=== PATIENT | male | born 1945 | race Caucasian/White ===

== ENCOUNTER → 2023-09-23 11:10 | Outpatient (REF) | payer MEDICARE, OTHER, SELFPAY | LOC: HWCARD 11:10 | PROVIDERS: ATTENDING PHYSICIAN Specialist; FAMILY PHYSICIAN Family Medicine | DX: Z01.818 Encounter for other preprocedural examination (principal) | CPT/HCPCS: 93005 ==

== ENCOUNTER 2023-10-29 10:52 | Outpatient (RCR) | payer MEDICARE, BC, SELFPAY | END 2023-10-29 23:59 | disposition home or self-care (01) | LOC: RPT 10:52 | PROVIDERS: ATTENDING PHYSICIAN Specialist; FAMILY PHYSICIAN Family Medicine | DX: M25.512 Pain in left shoulder (principal); S43.432D Superior glenoid labrum lesion of left shoulder, subsequent encounter; M66.3 Spontaneous rupture of flexor tendons; Z73.6 Limitation of activities due to disability | CPT/HCPCS: 97010; 97110; 97162 ==

== ENCOUNTER 2024-05-12 13:40 | Emergency (ER) | payer MEDICARE, BC, SELFPAY ==
--- NOTE | 2024-05-12 13:51 | ED.GENMED ---
ED Provider Triage
<Timmy Armenta PA-C - Last Filed: 05/12/24 13:54>
-
Patient seen by provider in Triage?: Seen in Triage
Attestation: A medical screening examination has been initiated by a qualified medical provider. Based on the assessment performed at this time, it has been determined that an emergent medical condition may exist and the patient has been informed
that further medical evaluation and possible additional diagnostic testing may be needed.
HPI: 78-year-old male presents after falling off a ladder approximately 4 to 5 feet, landing on his right foot. Complaining of right ankle pain. He is able to put slight weight on the foot with crutch assistance. Denies hip, knee, or low back pain
GENERAL: Alert , in no apparent distress
EYE: No visual abnormalities.
NECK: Trachea midline
ENT: No visible abnormalities.
LUNGS: No acute respiratory distress
NEUROLOGICAL: Alert and oriented
SKIN: Skin intact. No visible changes.
MUSCULOSKELETAL: Moving extremities normally
PSYCH: Normal and appropriate interaction.
A/P: Obtain x-rays
This is a medical evaluation conducted in person to initiate diagnostic evaluation and provide initial therapeutics. Please see further documentation by the treating clinician.
History of Present Illness
<Timmy Armenta PA-C - Last Filed: 05/12/24 13:54>
General
Chief Complaint: Musculo-Skeletal Complaint
Time Seen by Provider: 05/12/24 14:50
<Dwight Rojo PA-C - Last Filed: 05/12/24 17:24>
General
Source: patient
History of Present Illness
History of Present Illness:
78-year-old male with past medical history of hypertension presenting to the emergency department for evaluation of right ankle pain and swelling after he was on a ladder when he excellently tripped and fell onto the right lower extremity/ankle now
with difficulty ambulating and persistent pain. Denies any previous history of injury or surgery but states he has seen [facility] orthopedics for other various orthopedic injuries. Patient without any other injuries or concerns at this time.
Past History
<Timmy Armenta PA-C - Last Filed: 05/12/24 13:54>
Past History
ED Past Medical History: HTN
Social History
Tobacco: Non-smoker
Personal:
Living: with family
<Dwight Rojo PA-C - Last Filed: 05/12/24 17:24>
Past History
ED Past Surgical History: Orthopedic
Social History
Alcohol: Occasional
Drug: None
Review of Systems
<Dwight Rojo PA-C - Last Filed: 05/12/24 17:24>
Review of Systems
All Other Systems: ROS reviewed and negative except as documented in HPI and ROS
Phy Exam
<Dwight Rojo PA-C - Last Filed: 05/12/24 17:24>
Physical Exam
Physical Exam:
GENERAL: Alert , in no apparent distress
EYE: conjunctiva clear
Head: Normocephalic atraumatic
NECK: Supple,
ENT: mmm.
LUNGS: no acute respiratory distress
NEUROLOGICAL: Alert and oriented
SKIN: Warm and dry, skin intact.
MUSCULOSKELETAL: RLE: mild-moderate ttp right lateral malleolus with moderate STS. no tenderness at the base of the fifth metatarsal, no tenderness proximal tib-fib region
PSYCH: Normal and appropriate interaction.
Course
<Timmy Armenta PA-C - Last Filed: 05/12/24 13:54>
Orders/Labs/Results
Orders:
Orders
05/12/24 13:50
Ankle, Right 3 view CR [CR Ankle - Right Min 3 Views *] Urgent
Comment:
Reason For Exam: fall from 4-5 feet
05/12/24 15:02
Ortho Boot Right- Treatment ONCE
Short or tall?: Tall
Vital Signs
Initial and Last Documented VS:
Initial Vital Signs
Temp Pulse Resp Pulse Ox
97.7 F 75 18 96
05/12/24 13:51 05/12/24 13:51 05/12/24 13:51 05/12/24 13:51
Last Documented Vital Signs
Temp Pulse Resp BP Pulse Ox
97.7 F 85 18 165/75 98
05/12/24 13:51 05/12/24 16:01 05/12/24 16:01 05/12/24 16:01 05/12/24 16:01
<Dwight Rojo PA-C - Last Filed: 05/12/24 17:24>
Orders/Labs/Results
Orders:
Orders
05/12/24 13:50
Ankle, Right 3 view CR [CR Ankle - Right Min 3 Views *] Urgent
Comment:
Reason For Exam: fall from 4-5 feet
05/12/24 15:02
Ortho Boot Right- Treatment ONCE
Short or tall?: Tall
Vital Signs
Initial and Last Documented VS:
Initial Vital Signs
Temp Pulse Resp Pulse Ox
97.7 F 75 18 96
05/12/24 13:51 05/12/24 13:51 05/12/24 13:51 05/12/24 13:51
Last Documented Vital Signs
Temp Pulse Resp BP Pulse Ox
97.7 F 85 18 165/75 98
05/12/24 13:51 05/12/24 16:01 05/12/24 16:01 05/12/24 16:01 05/12/24 16:01
<Dwight Rojo PA-C - Last Filed: 05/12/24 17:24>
MDM/Problems Addressed
Differential Diagnosis Includes:
Fracture, sprain, contusion
MDM/Problems Addressed:
78-year-old male presenting to the emergency department for evaluation of right ankle pain and swelling following an accidental trip and fall off of a ladder. X-ray ordered from triage which shows a right lateral malleolus fracture. Patient would
prefer to go into an orthopedic boot over a splint. Advised patient that he needs close follow-up with orthopedics for further evaluation and potential treatment. Patient contacted [facility] orthopedics while he was in the ER. Aware of return
precautions.
<Dwight Rojo PA-C - Last Filed: 05/12/24 17:24>
*Radiology
Radiology exam reviewed: preliminary read by ED provider (right lateral malleolus fracture)
*Pulse Oximetry
Patient hypoxic: no
*Critical Care Note
Total Time (30-74mins, 75-104mins- exclusive of procedures): Not Applicable
ED Attending Note
<Timmy Armenta PA-C - Last Filed: 05/12/24 13:54>
-
Portions of this chart may have been created with voice recognition software.� Occasional wrong word or��sound alike� substitutions may have occurred due to the inherent limitations of voice recognition software.
Discharge Plan
Departure
Patient Disposition: Home (Routine Discharge)
Date of Disposition: 05/12/24
Time of Disposition: 15:00
Patient with high blood pressure during this ER visit?: No
Discharge Problem:
Closed fracture of distal end of right fibula
Instructions: Ankle Fracture (DC)
Prescriptions:
No Action
prednisone 10 MG tablet
10 mg PO .TAPER Qty: 30 0RF
Rx Instructions:
Take 40mg daily x3days, 30mg daily x3days,
20mg daily x3days, 10mg daily x3days.
hydrocodone-acetaminophen 1 TABLET tablet
1 tab PO Q4HPRN PRN (Reason: severe pain) Qty: 8 0RF
amoxicillin-pot clavulanate 1 TABLET tablet
1 tab PO Q12 Qty: 20 0RF
Referrals:
Lawrence Beckett MD [Family Provider] -
Interventions
Interventions:
*Risk Screen - Suicide Last Done: 05/12/24 13:51
*General Assessment Last Done: 05/12/24 14:36
*Neglect/Abuse Screening Last Done: 05/12/24 14:36
*ED COVID-19 Vaccine History Last Done: 05/12/24 14:36
*Nursing Disposition Last Done: 05/12/24 16:01
ED-Musculoskeletal Assessment Last Done: 05/12/24 14:36
Discharge Date and Time
Discharge Date/Time: 05/12/24 16:04
Print Language: [place]IZ[place]
[2024-05-12 16:01] VITALS: BP 165/75
== END 2024-05-12 16:04 | disposition home or self-care (01) ==
LOC: EMR 13:40
PROVIDERS: EMERGENCY PHYSICIAN Emergency Medicine; FAMILY PHYSICIAN Family Medicine
DX: S82.831A Other fracture of upper and lower end of right fibula, initial encounter for closed fracture (principal); W11.XXXA Fall on and from ladder, initial encounter; I10 Essential (primary) hypertension
CPT/HCPCS: 99283; 73610

== ENCOUNTER → 2024-05-14 13:16 | Outpatient (REF) | payer MEDICARE, BC, SELFPAY ==
[2024-05-14 14:42] LABS: Hematocrit 41.6 % (39.0-52.0); Hemoglobin 14.4 g/dL (13.0-18.0); Mean Corp Hgb Conc. 34.6 g/dL (33.0-37.0); Mean Corpuscular Hgb 31.9 pg (27.0-31.0); Platelet Count 154 10^3/uL (130-400); Red Blood Cell Count 4.52 10^6/uL (4.70-6.10); Red Cell Dist. Width 14.3 % (11.5-14.5); White Blood Cell Count 9.3 10^3/uL (4.8-10.8)
[2024-05-14 15:16] LABS: % Basophils 0.5 % (0-2); % Eosinophils 2.7 % (0-6); % Immature Granulocytes 0.2 % (0-0.5); % Lymphocytes 51.3 % (20.5-51.1); % Monocytes 7.9 % (1.7-9.3); % Neutrophils 37.4 % (42.2-75.2); Absolute Basophils 0.1 10^3/uL (0-0.2); Absolute Eosinophils 0.3 10^3/uL (0-0.7); Absolute Lymphocytes 4.8 10^3/uL (1.2-3.4); Absolute Monocytes 0.7 10^3/uL (0.1-0.6); Absolute Neutrophils 3.5 10^3/uL (1.4-6.5); Nucleated Red Blood Cells % 0 % (-)
== END ==
LOC: REG 13:16
PROVIDERS: ATTENDING PHYSICIAN Student in an Organized Health Care Education/Training Program; FAMILY PHYSICIAN Family Medicine
DX: Z01.818 Encounter for other preprocedural examination (principal)
CPT/HCPCS: 36415; 85025; 93005